=== PATIENT | female | born 1970 | race Caucasian/White ===

== ENCOUNTER 2016-10-09 05:30 | Inpatient (IN) | payer OTHER ==
[2016-10-09] VITALS (21 sets, daily range): BP systolic 103–147; BP diastolic 65–91; PULSE 74–86; RESP 11–28; Ht 166.4 cm; Wt 88.8 kg
[~2016-10-09] VITALS: Ht 166.4 cm; Wt 88.8 kg
[~2016-10-09 05:30] MED LIST: GABA600T PO; HYDR-3720 PO; HYDR-762 PO
[2016-10-09] MEDS ORDERED: CEFAZOLIN 2 GM/50 ML (PMX) 50 ML IVPB ONE (06:50)
[2016-10-09] MEDS ORDERED: NS + KCL 20 MEQ 1,000 ML IV SCH (06:50)
[2016-10-09] MEDS ORDERED: ROCURONIUM 50 MG INJ ONE (07:00)
[2016-10-09] MEDS ORDERED: EPHEDrine SULFATE 50 MG/5 ML SYG ONE (07:00)
[2016-10-09] MEDS ORDERED: LURA80TA PO (07:28)
[2016-10-09] MEDS ORDERED: MIRT-8 PO (07:28)
[2016-10-09] MEDS ORDERED: CITA-104 PO (07:28)
[2016-10-09] MEDS ORDERED: ALPR2TAB PO (07:28)
[2016-10-09] MEDS ORDERED: CEFAZOLIN 1 GM INJ ONE ×2 (07:32→10:14)
[2016-10-09] MEDS ORDERED: LIDOCAINE 0.5%/EPI (MDV) 50 ML INJ ONE (07:32)
[2016-10-09] MEDS ORDERED: HYDROmorphONE 2 MG/ML SYG ONE (07:42)
[2016-10-09] MEDS ORDERED: MIDAZOLAM 1 MG/ML 2 ML INJ ONE (07:42)
[2016-10-09] MEDS ORDERED: THROMBIN 5000 UNIT VIAL ONE (07:46)
--- NOTE | 2016-10-09 08:30 | HP ---
Date/Time of Note Date/Time of Note DATE: 10/09/16 TIME: 08:23 Assessment/Plan VTE Prophylaxis VTE Prophylaxis Intervention: anti-embolic stocking Lines/Catheters IV C[facility]ter Type [facility]from [facility]): Saline Lock Assessment/Plan Chief Complaint/Hosp Course 46 year-old F with lumbar radiculopathy and spondylosis. I discussed the risk, benefits and alternatives of surgery with patient in detail. The patient understands the risk and wishes to proceed with surgery. Patient to go for L4-5, L5-S1 decompression and fusion. Problems: HPI/ROS Admit Date/Time Admit Date/Time Oct 09, 2016 at 05:30 Hx of Present Illness Documented in system , scanned. 46 year-old F with lumbar radiculopathy and lumbago. MRI shows L4-5 spondylolisthesis, L5-S1 DDD and lumbar spondylosis. Patient denies weakness. He reports chronic incontinence. The patient has failed multiple modalities of non-operative therapy. ROS Skin: no complaints Neurologic: no complaints Psychological: anxiety, depression PMH/Family/Social Past Medical History Medical History: other (depression 2) schizophrenia) Past Surgical History Past Surgical Hx: other (ear tubes as child) Family History Significant Family History: no pertinent family hx Social History Alcohol Use: sober Smoking Status: Former smoker Drug Use: none Exam/Review of Systems Vital Signs Vitals Vital Signs Date Time Temp Pulse Resp B/P Pulse Ox O2 Delivery O2 Flow Rate FiO2 10/09/16 06:42 98.0 82 20 103/73 99 Room Air Exam Constitutional: alert, oriented, well developed Psych: nl mood/affect, no complaints Head: normocephalic Eyes: EOMI, nl conjunctiva ENMT: nl external ears & nose Respiratory: clear to auscultation Cardiovascular: nl pulses Gastrointestinal: non-tender, soft Musculoskeletal: nl extremities to inspection, other (normal tone and bulk. No atrophy) Extremities: normal pulses Neurological: TWISTING FRAME FIXER II-XII intact, nl mental status, nl strength Medications Medications Current Medications Potassium Chloride/Sodium Chloride (NS-KCl 20 Meq) 1,000 ml @ 85 mls/hr [id number] IV ; Start 10/09/16 at 06:50; Stop 10/09/16 at 18:35 ALEX JAMES MD Oct 09, 2016 08:30
--- NOTE | 2016-10-09 08:31 | HPN ---
Date/Time of Note Date/Time of Note DATE: 10/09/16 TIME: 08:30 Interval H&P Admission Note Pt. seen H&P reviewed: No system changes ALEX JAMES MD Oct 09, 2016 08:31
--- NOTE | 2016-10-09 08:48 | RADRPT ---
PROCEDURE: CT lumbar spine without contrast. CLINICAL INDICATION: Preop surgery, low back pain TECHNIQUE: CT of the lumbar spine without contrast was performed on a multidetector CT scanner, wi th multiplanar reformats. One or more of the following dose reduction techniques were used: Automat ed exposure control, adjustment in mA and / or kV according to patient size, use of iterative recons tructive technique. CTDIvol = 48 mGy and DLP = 1223 mGy-cm. COMPARISON: None available. FINDINGS: No fracture or dislocation is identified. There is preservation of the lordosis of the lumbar spine . There is 2 mm retrolisthesis of L3 on L4, and 3 mm grade 1 anterolisthesis of L4 on L5. The vert ebral bodies are maintained in height. There is multilevel anterior spondylosis. There is mild dis k space posteriorly at L1-2 through L3-4, and disk space narrowing severe posteriorly with vacuum ch anges and prominent adjacent sclerosis at L5-S1. Noted are end plate irregularities/Schmorl nodes a t the L2, L3 endplates. T12-L1: There is a minimal posterior central annular calcification. There is no central canal steno sis or foraminal narrowing. L1-L2: There is a minimal posterior right central annular calcification. There is mild facet arthro gigi. There is no central canal stenosis or foraminal narrowing. L2-L3: No disk bulge or herniation is seen. There is mild facet arthropathy. There is no central c anal stenosis or foraminal narrowing. L3-L4: There is posterior disk bulging and facet arthropathy with ligamentum flavum hypertrophy. Th ere is moderate appearing central canal stenosis with lateral recess narrowing. There is mild bilat eral foraminal narrowing. L4-L5: There is posterior disk bulging and advanced facet arthropathy with ligamentum flavum hypertr ophy. There is mild mild appearing central canal stenosis with lateral recess narrowing. There is moderate bilateral foraminal narrowing. L5-S1: There is posterior disk bulging with central annular calcification and facet arthropathy with ligamentum flavum hypertrophy. There is mild appearing central canal stenosis. The thecal sac tape rs at this level. There is moderate to severe bilateral foraminal narrowing. IMPRESSION: 1. Moderate appearing central canal stenosis at L3-4, and mild central canal stenosis at L4-5 and L 5 lateral recess narrowing at these levels. 2. Multilevel foraminal narrowing outlined in detail above. 3. Lumbar spondylosis with mild retrolisthesis at L3-4, and grade 1 anterolisthesis at L4-5. RPTAT: VV .Gama Vo MD, Date Time Electronically viewed and signed by .Gama Vo MD, on 10/09/2016 08:48 .O/
[2016-10-09] MEDS ORDERED: PROPOFOL 100 ML ONE ×2 (09:19→10:14)
[2016-10-09] MEDS ORDERED: CIPROFLOXACIN 400MG/D5W 200 ML ONE (09:19)
[2016-10-09 09:49] LABS: ADD UMIC NO; URINE BILIRUBIN (Dip) NEGATIVE (NEGATIVE); URINE BLOOD (Dip) NEGATIVE (NEGATIVE); URINE COLOR LT. YELLOW (YELLOW); URINE GLUCOSE (Dip) NEGATIVE (NEGATIVE); URINE KETONES (Dip) NEGATIVE (NEGATIVE); URINE LEUKOCYTE ESTERASE (Dip) NEGATIVE (NEGATIVE); URINE NITRITE (Dip) NEGATIVE (NEGATIVE); URINE TOTAL PROTEIN (Dip) NEGATIVE (NEGATIVE); URINE UROBILINOGEN (Dip) 0.2 E.U./dL (0.1-1.0)
[2016-10-09] MEDS ORDERED: PROPOFOL 20 ML ONE ×4 (14:17→16:18)
[2016-10-09] MEDS: GELATIN SIZE 100 SPONGE ONE ×2 (14:17)
[2016-10-09] MEDS: THROMBIN 5000 UNIT VIAL ONE ×2 (14:17)
[2016-10-09] MEDS ORDERED: ONDANSETRON 4 MG INJ ONE (14:17)
[2016-10-09] MEDS ORDERED: MEPERIDINE 100 MG INJ ONE (14:27)
[2016-10-09] MEDS ORDERED: FENTAnyl 50 MCG/ML VIAL ONE (14:37)
[2016-10-09] MEDS ORDERED: HYDROmorphONE (0.2 MG/ML) 10ML SYG IV PRN ×2 (15:00)
[2016-10-09] MEDS ORDERED: DIPHENHYDRAMINE 50 MG INJ IV PRN (15:00)
[2016-10-09] MEDS ORDERED: MEPERIDINE 25 MG INJ IV PRN (15:00)
[2016-10-09] MEDS ORDERED: ONDANSETRON 4 MG INJ IV PRN ×2 (15:00→17:00)
[2016-10-09] MEDS ORDERED: METOCLOPRAMIDE 10 MG INJ IV PRN (15:00)
[2016-10-09] MEDS ORDERED: VANCOMYCIN 1 GM INJ ONE (15:08)
[2016-10-09] MEDS ORDERED: NALOXONE (0.4 MG/ML) INJ IV PRN (17:00)
[2016-10-09] MEDS ORDERED: BETHANECHOL 25 MG TAB PO PRN (17:00)
[2016-10-09] MEDS ORDERED: CEPASTAT LOZENGE MT PRN (17:00)
[2016-10-09] MEDS ORDERED: AL HYDROX/MG HYDROX/SIMETH 30 ML CUP PO PRN (17:00)
[2016-10-09] MEDS ORDERED: HYDROCODONE/APAP (5/325) TAB PO PRN (17:00)
[2016-10-09] MEDS ORDERED: NACL 0.9% 3 ML SYG IV SCH (17:00)
[2016-10-09] MEDS ORDERED: ACETAMINOPHEN 325 MG TAB PO PRN (17:00)
[2016-10-09] MEDS ORDERED: ZOLPIDEM 5 MG TAB PO PRN (17:00)
--- NOTE | 2016-10-09 17:18 | RADRPT ---
PROCEDURE: Intraoperative imaging of the lumbar spine with fluoroscopy. CLINICAL INDICATION: Back pain. Intraoperative. TECHNIQUE: 7 images of the lumbar spine were obtained in the operating room with an image intensif ier. No radiologist was in attendance. 66 seconds of fluoroscopy time was used. COMPARISON: CT scan of the lumbar spine done earlier the same day. FINDINGS: For the purposes of this report, the last apparent true disc level is considered to be L5-S1. Based on this, pedicle screws and connecting rods are present at L4, L5, and S1. IMPRESSION: 1. Intraoperative imaging of the lumbar spine. RPTAT: QQ .Joshua Tinajero MD, MD Date Time Electronically viewed and signed by .Joshua Tinajero MD, MD on 10/09/2016 17:18 .R/
--- NOTE | 2016-10-09 17:20 | OPPN ---
Date/Time of Note Date/Time of Note DATE: 10/09/16 TIME: 17:03 Operative/Procedure Note Pre-Operative Diagnosis 1. Chronic low back pain. 2. Lumbar spondylosis 3. Facet arthropathy L5-S1, L4- 5 4. Lumbar spondylolisthesis. 5. Lumbar radiculopathy. Post-Operative Diagnosis 1. Chronic low back pain. 2. Lumbar spondylosis 3. Facet arthropathy L5-S1, L4- 5 4. Lumbar spondylolisthesis. 5. Lumbar radiculopathy. Procedure 1. Lumbar bilateral laminectomy, L5, partial L4, S1. 2. Lumbar posterior- lateral arthrodesis L4-S1. 3. Lumbar instrumentation L4,L5-S1 bilateral pedicle screws 4. Frameless stereotactic navigation. 5.Use of microscope for intraoperative microdissection. Surgeon: ALEX JAMES MD Anesthesiologist: JOSS GÓMEZ MD Findings spondylolisthesis Implants/Grafts Choice pedicle screws Estimated blood loss: 250 - 300 ml's Drains subfascial hemovac drain Specimens: Not Applicable Complications: None Anesthesia type: general ALEX JAMES MD Oct 09, 2016 17:20
[2016-10-09] MEDS: HYDROmorphONE (0.2 MG/ML) 10ML SYG IV PRN ×2 (17:23→17:56)
[2016-10-09] MEDS: morphine 1 MG/ML 30 ML (PCA) IV SCH ×2 (17:52→23:39)
[2016-10-09] MEDS: DIAZEPAM 5 MG TAB PO PRN (20:21)
[2016-10-09] MEDS: CEFAZOLIN 1 GM/50 ML (PMX) 50 ML IVPB SCH (20:29)
[2016-10-09] MEDS ORDERED: VITAMIN A & D 5 GM OINT PACKET TOP ONE (21:30)
--- NOTE | 2016-10-09 23:59 | PN ---
Date/Time of Note Date/Time of Note DATE: 10/09/16 TIME: 23:56 Assessment/Plan VTE Prophylaxis VTE Prophylaxis Intervention: anti-embolic stocking Lines/Catheters IV Catheter Type (from Nrsg): Peripheral IV Urinary Cath still in place: Yes Reason Cath still needed: other (indicate) Assessment/Plan Chief Complaint/Hosp Course CHRONIC BACK PAIN LUMBER RADICULOPATHY S/P LUMBER BILATERAL LAMINECTOMY PLAN PER ORDER PAIN MEDS CK LABS Problems: Subjective 24 Hr Interval Summary ENT: no complaints Respiratory: no complaints Cardiovascular: no complaints Gastrointestinal: no complaints Genitourinary: no complaints Musculoskeletal: bone/joint pain (+) Skin: no complaints Neurologic: no complaints Endocrine: no complaints Lymphatic: no complaints Psychological: no complaints Exam/Review of Systems Vital Signs Vitals Vital Signs Date Time Temp Pulse Resp B/P Pulse Ox O2 Delivery O2 Flow Rate FiO2 10/09/16 21:13 18 10/09/16 21:09 Nasal Cannula 2.0 10/09/16 21:08 98.4 83 115/65 98 Intake and Output 10/08/16 10/08/16 10/09/16 15:00 23:00 07:00 Output Total 300 ml Balance -300 ml Exam Constitutional: alert, oriented, well developed Psych: anxiety, nl mood/affect, no complaints Head: atraumatic, normocephalic Eyes: EOMI, nl conjunctiva, nl lids ENMT: nl external ears & nose, nl lips & teeth, nl nasal mucosa & septum Neck: jvd, non-tender, supple Respiratory: clear to auscultation, normal air movement Cardiovascular: nl pulses, regular rate and rhythm Gastrointestinal: nl liver, spleen, non-tender, soft Musculoskeletal: nl extremities to inspection Extremities: normal pulses Neurological: DISPENSER OPERATOR II-XII intact, nl mental status Skin: nl turgor Results Results 24 hrs Laboratory Tests Test 10/09/16 09:16 Urine Bilirubin NEGATIVE Urine Clarity CLEAR Urine Color LT. YELLOW Urine Glucose NEGATIVE Urine Hemoglobin NEGATIVE Urine Ketones NEGATIVE Urine Leukocyte Esterase NEGATIVE Urine Nitrite NEGATIVE Urine Specific [place] 1.010 Urine Total Protein NEGATIVE Urine Urobilinogen 0.2 E.U./dL Urine pH 7.0 Medications Medications Current Medications Acetaminophen/ Hydrocodone Bitart ([place] (5/325)) 1 tab Q4H PRN PO PAIN LEVEL 1 -5; Start 10/09/16 at 17:00 Acetaminophen/ Hydrocodone Bitart 2 tab 2 tab Q4H PRN PO PAIN LEVEL 6-10; Start 10/09/16 at 17:00 Cefazolin Sodium (Ancef 1 Gm/50 ml (Pmx)) 50 ml @ 100 mls/hr Q6 IVPB Last administered on 10/09/16 20:29; Admin Dose 100 MLS/HR; Start 10/09/16 at 18:00; Stop 10/10/16 at 12:29 Zolpidem Tartrate (Ambien) 5 mg HS PRN PO INSOMNIA; Start 10/09/16 at 17:00 Ondansetron HCl (Zofran Inj) 4 mg Q6H PRN IV NAUSEA AND/OR VOMITING; Start 10/09 at 17:00 Al Hydrox/Mg Hydrox/Simethicone (Mag-Al Plus) 15 ml Q4H PRN PO CONSTIPATION; Start 10/09/16 at 17:00 Docusate Sodium (Colace) 100 mg BID PO ; Start 10/10/16 at 09:00 Acetaminophen (Tylenol Tab) 650 mg Q4H PRN PO TEMP GREATER THAN 101F OR FERRARO; Start 10/09/16 at 17:00 Ferrous Sulfate (Ferrous Sulfate (Ec)) 325 mg TID PO ; Start 10/10/16 at 09:00 Diazepam (Valium) 5 mg Q4H PRN PO MUSCLE SPASMS Last administered on 10/09/16 20:21; Admin Dose 5 MG; Start 10/09/16 at 17:00 Phenol (Cepastat Lozenge) 1 lozenge PRN PRN MT SORE THROAT; Start 10/09/16 at 17 :00 Bethanechol Chloride (Urecholine) 25 mg PRN PRN PO UNABLE TO VOID; Start at 17:00 Morphine Sulfate (morphine) Q4PCA IV Last administered on 10/09/16 23:39; Admin Dose 30 MG; Start 10/09/16 at 17:00 Naloxone HCl (Narcan) 0.2 mg Q2M PRN IV RR 8 BREATHS/MIN OR LESS; Start at 17:00 SUNG DUTTON MD Oct 09, 2016 23:59
[2016-10-10] MEDS: ALPRAZOLAM 0.25 MG TAB PO SCH ×3 (00:07→21:00)
[2016-10-10] MEDS: CEFAZOLIN 1 GM/50 ML (PMX) 50 ML IVPB SCH ×3 (00:07→12:59)
[2016-10-10] MEDS: HYDROCODONE/APAP (5/325) TAB PO PRN (03:41)
[2016-10-10] MEDS: DIAZEPAM 5 MG TAB PO PRN (04:27)
--- NOTE | 2016-10-10 04:32 | OPR ---
DATE OF OPERATION: 10/09/2016 PREOPERATIVE DIAGNOSES: 1. Chronic low back pain. 2. Lumbar spondylosis. 3. Facet arthropathy L5 to S1, L4 to L5. 4. Lumbar spondylolisthesis, L4 to L5. 5. Lumbar radiculopathy. POSTOPERATIVE DIAGNOSES: 1. Chronic low back pain. 2. Lumbar spondylosis. 3. Facet arthropathy L5 to S1, L4 to L5. 4. Lumbar spondylolisthesis, L4 to L5. 5. Lumbar radiculopathy. PROCEDURES: 1. Bilateral lumbar laminectomy, L5, partial L4 bilaterally, partial S1 bilaterally. 2. Lumbar posterolateral arthrodesis, L4 to S1. 3. Lumbar posterior instrumentation with pedicle screws bilaterally L4, L5, S1. 4. Use of frameless stereotactic navigation. 5. Use of intraoperative microscope for microdissection. SURGEON: Alex Bravo MD SURGICAL INSTRUMENT TECHNICIAN: POOL Marc. ANESTHESIOLOGIST: Alissa Moeller MD FINDINGS: Spondylolisthesis. IMPLANTS: Choice pedicle screws. ESTIMATED BLOOD LOSS: 300 mL. DRAIN PLACED: Subfascial Hemovac drain. SPECIMENS COLLECTED: None. COMPLICATIONS: None. ANESTHESIA: General endotracheal. INDICATIONS: The patient is a 46-year-old female with a history of chronic low back pain. The patient had been followed for many years and tried multiple nonoperative therapies for symptomatic improvement; however, the patient's symptoms progressed. She complained of back pain and left lower extremity radiculopathy consistent with a possible S1 and possible L5 radiculopathy. The risks, benefits and alternatives were discussed, and the patient elected for the procedures. PROCEDURES IN DETAIL: The patient was brought to the OR. She was sedated, intubated, anesthesia successfully induced. A Blanc catheter was placed. A UA as drawn as the patient had had a preoperative UA however was asymptomatic and was also given Cipro given these findings and Ancef for surgical prophylaxis. Sequential compression devices were placed. The patient was placed in a prone position on the operative table. All pressure points were checked for appropriate padding. The patient's arms were placed at a slightly less than 90- degree angle, and the axilla was checked for appropriate padding. The patient was monitored electrophysiologically with EMG and SSEP and baselines established. Fluoroscopy was used to localize the initial incision, and the patient was sterilely prepped and draped. After surgical time-out, the procedures commenced. A 10-blade knife was used to make an incision from L3 down to S1 through the skin. The patient had a significant amount of subcutaneous fat with 2 actual distinct layers. These were dissected through with Bovie electrocautery until the dorsal surface of the spinous process and lumbar fascia were identified. Self-retaining retractor was placed. Bovie electrocautery was used to perform a subperiosteal dissection along the spinous processes and laminae of L4, L5 and S1, laterally to the transverse processes. Self-retaining retractors were placed. At this point, Brainlab was registered. The frame was placed on the S1 spinous process and fit securely. Brainlab was registered to 0.4 mm accuracy and this appeared to be confirmed. The pedicle screws were then placed on the right side in all metallic fashion. The Brainlab probe was used to localize the initial aerial applicator pilot hole at a point in the lateral aspect of the facet joint bisecting the transverse processes, and then with a drill in frameless guidance , the drill was used to make a 30 mm hole into the pedicle. This was probed with a pedicle probe, and there was no evidence of violation, and then the Brainlab probe was used to confirm the trajectory and depth. Next, a 4.5 mm tap was used to tap down into the pedicle. This was again probed with the ball- tip pedicle probe and then the Brainlab probe used to confirm the depth and location. Next, a 5.5 screw was advanced into the vertebral body. A 40 mm x 5.5 mm screw was used at L4 and L5 and a 35 x 6.5 at S1. All screws had excellent purchase. The screws were stimulated and L4 and S1 were above 20; however, L5 measured at 15.6. Although this was above the threshold for an actual violation, this screw was actually removed and the hole probed again, and there did not appear to be an obvious breach or violation; hence the screw was replaced though angled slightly more superiorly and laterally. The screw again tested at 16 mA but was felt to be in an adequate position with no evidence of compression of the nerve. Fluoroscopic images were obtained, and the screws appear to be appropriately positioned. Next, the screws on the left side were placed, and these were to be placed in the same fashion; however, Brainlab was re-registered, and after 3 attempts the registration did not appear to be valid, as there appeared to be error in specific areas, and because of these, it was not felt that the guidance was accurate, although it had been listed as low as 0.8 mm. For this reason, a freehand technique was used. A aerial applicator pilot hole was used under fluoroscopic guidance to make the bur hole, and then a Lenke probe was used to cannulate the pedicle. Next, a 4.5 tap was used at L4 and L5 and the hole was probed with a ball-tip probe and showed no evidence of violation, and then a 5.5 x 40 mm screw at L4 and 5.5 x 45 mm screw at L5 were advanced into the vertebral body. These screws had excellent purchase. A 6.5 x 35 screw was used at S1, and this created excellent purchase. These screws on the left were all tested above 20 mA with stimulation. With the screws placed, the microscope was then brought in to perform a laminectomy. A complete laminectomy at L5 was performed with the high-speed drill and Kerrison rongeurs. The inferior aspect of L4 and superior aspect of S1 were removed primarily on the left side where the patient was symptomatic and there appeared to be some disk bulge. The patient's thecal sac appeared to be significantly tethered and constrained by almost a vascular membrane/sheath, very unusual. Dissection was performed and the L5 and S1 nerves were visualized from their takeoff into the foramen. These appear to have been constrained significantly by this vascularized membrane which did not appear infectious but simply perhaps degenerative. This took significant amount of dissection simply to separate this pseudomembrane to the extent where the thecal sac could be mobilized to see the disk spaces. Under the nerve root and at the shoulder and the axilla, there was some small disk bulge, but there did not appear to be a large disk herniation, and for this reason, it was not felt that a diskectomy was necessary to be performed, as the nerve root appeared to be adequately decompressed by the laminectomy and foraminotomy. With the decompression performed, 60 mm rods were then placed for reduction of spondylolisthesis. Rods were placed bilaterally into the screw heads at L5 and S1 and then with a flight controls engineer the rufina was compressed to the L4 screw and caps were placed. There was significant reduction of the spondylolisthesis and there was no change in the EMG. Final tightening of the screw caps was performed with a final tightening wrench and counter-torque wrench. Next, a high-speed drill was used to decorticate the bone from L4 to S1, then demineralized bone matrix as well as local laminal bone and bone connected and bone trap were put together and placed in a posterolateral fusion. Vancomycin powder was then placed over the instrumentation and a drain tunneled through the skin and the subgaleal space. Incision was then closed with 1-0 suture in the fascia, 2-0 interrupted Vicryl sutures in subcutaneous tissue and a running 4-0 Monocryl suture. Dermabond was placed on incision, allowed to dry, and a sterile dressing applied. The patient was taken off the table, extubated, and taken to recovery. Sponge, needle, and cottonoid count were reported correct at the end of the case. Electrophysiologic monitoring remained stable throughout the case. Dictated By: ALEX BRAVO MD, LG/LAKEISHA Conf#: [id number] DID#: [id number] LYNN
[2016-10-10 05:08] LABS: ADD SCAN DIFF NO
[2016-10-10 05:19] LABS: BASOPHILS % 0.3 % (0.0-2.0); EOSINOPHILS # 0.1 10^3/ul (0.0-0.5); EOSINOPHILS % 1.4 % (0.0-7.0); HEMATOCRIT 34.3 % (37.0-47.0); HEMOGLOBIN 10.9 g/dl (12.0-16.0); LYMPHOCYTES # 1.6 10^3/ul (0.8-2.9); LYMPHOCYTES % 15.7 % (15.0-51.0); MEAN CORPUSCULAR HEMOGLOBIN 31.1 pg (29.0-33.0); MEAN CORPUSCULAR HGB CONC 31.8 g/dl (32.0-37.0); MEAN PLATELET VOLUME 10.3 fl (7.4-10.4); MONOCYTE # 0.8 10^3/ul (0.3-0.9); MONOCYTES % 7.8 % (0.0-11.0); NEUTROPHIL # 7.5 10^3/ul (1.6-7.5); NEUTROPHILS % 74.4 % (39.0-77.0); PLATELET COUNT 271 10^3/UL (140-415); RED CELL DISTRIBUTION WIDTH 13.5 % (11.5-14.5); WHITE BLOOD COUNT 10.1 10^3/ul (4.8-10.8)
[2016-10-10 05:49] LABS: POTASSIUM 3.9 mmol/L (3.5-5.1)
[2016-10-10 05:52] LABS: CREATININE 0.63 mg/dl (0.44-1.00)
[2016-10-10 05:53] LABS: CALCIUM 7.7 mg/dl (8.4-10.2)
[2016-10-10] MEDS: morphine 1 MG/ML 30 ML (PCA) IV SCH ×2 (06:26→15:43)
[2016-10-10 08:04] VITALS: BP 108/72; RESP 18
--- NOTE | 2016-10-10 08:55 | PN ---
Date/Time of Note Date/Time of Note DATE: 10/10/16 TIME: 08:38 Assessment/Plan Lines/Catheters IV Catheter Type (from Nrsg): Peripheral IV García in Place (from Nrsg): Yes Assessment/Plan Chief Complaint/Hosp Course 46 year-old female s/p L4-S1 decompression and fusion POD #1 Neurologically stable. PT/OT ambulate with brace. pain control. DVT prophylaxis with SCD, start LMHW. Problems: Subjective 24 Hr Interval Summary Patient very anxious. Wants garcía out. Denies LE pain or weakness but states that she hasn't been up to true evaluate. Mostly c/o incisional pain. Denies fever or chills. Exam/Review of Systems Vital Signs Vitals Vital Signs Date Time Temp Pulse Resp B/P Pulse Ox O2 Delivery O2 Flow Rate FiO2 10/10/16 08:04 98.8 96 18 108/72 96 10/09/16 21:09 Nasal Cannula 2.0 Intake and Output 10/09/16 10/09/16 10/10/16 15:00 23:00 07:00 Intake Total 2900 ml 1050 ml Output Total 1150 ml 2440 ml Balance 1750 ml -1390 ml Exam Constitutional: alert, oriented Psych: anxiety Head: normocephalic ENMT: other (blister on lips) Drains drain intake. Neurological: FREEZING MACHINE OPERATOR II-XII intact, nl speech, nl strength Results Result Diagram: 10/10/1641910/10/16419 ALEX JAMES MD Oct 10, 2016 08:48
[2016-10-10] MEDS ORDERED: ALPRAZOLAM 1 MG TAB PO SCH (09:00)
[2016-10-10] MEDS ORDERED: NON-FORMULARY/PATIENT OWN MED (Lurasidone Hcl (Latuda) 80 MG) PO SCH (09:00)
[2016-10-10] MEDS ORDERED: LURASIDONE HCL 80 MG XX SCH (09:30)
[2016-10-10] MEDS: CITALOPRAM 20 MG TAB PO SCH (09:41)
[2016-10-10] MEDS: KETOROLAC 30 MG INJ IV PRN (09:42)
[2016-10-10] MEDS: FERROUS SULFATE (EC) 325 MG TAB PO SCH ×3 (09:42→20:46)
[2016-10-10] MEDS: DOCUSATE SODIUM 100 MG CAP PO SCH ×2 (09:42→20:45)
[2016-10-10] MEDS: HEPARIN 5,000 UNIT/0.5 ML SYG SC SCH ×2 (09:45→20:52)
[2016-10-10] MEDS: LATUDA PO SCH (12:58)
[2016-10-10] MEDS: MIRTAZAPINE 15 MG TAB PO SCH (12:59)
--- NOTE | 2016-10-10 16:28 | QN ---
Documentation Comment [id number] SUNG DUTTON MD Oct 10, 2016 16:28
--- NOTE | 2016-10-10 18:06 | CONS ---
DATE OF ADMISSION: 10/09/2016 DATE OF CONSULTATION: TYPE OF CONSULTATION: Internal Medicine HISTORY OF PRESENT ILLNESS: A 46-year-old female with lumbar radiculopathy and spondylosis. She wa s seen postop. The patient underwent bilateral lumbar laminectomy L5 partial, L4 bilaterally, parti al S1, bilateral lumbar posterolateral arthrodesis L4 to L5, lumbar posterior instrumentation, use o f intraoperative microscope for dissection. The patient is being seen postprocedure. PAST MEDICAL HISTORY: Positive for depression, anxiety. ALLERGY HISTORY: NEGATIVE. FAMILY HISTORY: Negative. SOCIAL HISTORY: Negative. MEDICATIONS: The patient at home is on: 1. Xanax. 2. Celexa. 3. Latuda. 4. Mirtazapine. REVIEW OF SYSTEMS: HEENT: Unremarkable. RESPIRATORY: Unremarkable. CARDIOVASCULAR: Unremarkable. ABDOMEN: No abdominal pain. EXTREMITIES: No lower extremity pain, but complains of some back pain. PHYSICAL EXAMINATION: GENERAL: The patient is awake, alert. VITAL SIGNS: Pulse of 93, blood pressure 108/72. HEAD: Atraumatic, normocephalic. Pupils equal, reactive to light. NECK: Supple. No JVD. LUNGS: Clear. CARDIOVASCULAR: S1, S2 normal. ABDOMEN: Soft, nontender. Bowel sounds positive. EXTREMITIES: No cyanosis, clubbing, or edema. CENTRAL NERVOUS SYSTEM: The patient is awake, weak, slow, postop and able to move lower extremities . SKIN: The patient has a dressing on the back noted. LABORATORY DATA: Hematocrit 34.3. IMPRESSION: 1. The patient had bilateral lumbar laminectomy, lumbar posterolateral arthrodesis, lumbar posterio r instrumentation. 2. Anemia. 3. History of psychiatric disorder. PLAN: Continue current treatment, incentive spirometry, SCDs to the legs, pain medications. Orders were done. Dictated By: SUNG DUTTON MD BS/NTS Conf#: [id number] DID#: [id number]
--- NOTE | 2016-10-10 19:29 | RADRPT ---
PROCEDURE: XR Lumbar Spine. CLINICAL INDICATION: Back pain. TECHNIQUE: Three views. AP, lateral and cone-down lateral view of the lumbar spine were obtained. COMPARISON: Intraoperative imaging dated 10/09/2016. FINDINGS: There has been posterior fusion with pedicle screws and connecting rods at L4, L5, S1. Alignment is satisfactory. There is no fracture. There is no lytic or blastic lesion. There are degenerative changes with small osteophytes throughout. The paravertebral soft tissues are unremarkable. IMPRESSION: 1. Satisfactory postoperative appearance of the lumbar spine. RPTAT: QQ .Joshua Tinajero MD, MD Date Time Electronically viewed and signed by .Joshua Tinajero MD, MD on 10/10/2016 19:29 .R/
[2016-10-10] MEDS ORDERED: ALPRAZOLAM 1 MG TAB PO PRN (20:30)
[2016-10-10] MEDS ORDERED: LORAZEPAM 2 MG INJ IV PRN (20:30)
[2016-10-10 20:55] VITALS: BP 124/68; PULSE 72; RESP 18
[2016-10-10 21:05] VITALS: BP 113/67; RESP 20
[2016-10-10] MEDS ORDERED: VITAMIN A & D 5 GM OINT PACKET TOP ONE (21:40)
[2016-10-11] MEDS: morphine 1 MG/ML 30 ML (PCA) IV SCH ×2 (00:23→08:30)
[2016-10-11 08:15] VITALS: BP 120/57; RESP 18
[2016-10-11 08:33] VITALS: BP 100/58; RESP 18
[2016-10-11] MEDS: ALPRAZOLAM 0.25 MG TAB PO SCH (09:00)
--- NOTE | 2016-10-11 09:20 | PN ---
Date/Time of Note Date/Time of Note DATE: 10/11/16 TIME: 09:16 Assessment/Plan Lines/Catheters IV Catheter Type (from Nrs): Peripheral IV Blanc in Place (from Nrs): Yes Assessment/Plan Chief Complaint/Hosp Course 46 year-old female s/p L4-S1 decompression and fusion POD #2 Neurologically stable. cont. PT DVT prophylaxis with SCD, start LMHW. 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 If stable medically, home today with [place], [place] and Valium new meds; may resume other prior meds and discussed not using Valium when taking Xanax. Discussed discharge instructions and precautions. Problems: Subjective 24 Hr Interval Summary Patient doing well. Has ambulated multiple times but has not experience radicular leg pain but did report some buttock cramping. Denies fevers, chills. Back pain present controlled. Denies weakness. 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 Drain D/Cd.) Results Result Diagram: 10/10/1641910/10/16 042 Procedures Procedures A/P later lumbar x-rays reviewed, stable instrumentation. ALEX JAMES MD Oct 11, 2016 09:20
[2016-10-11] MEDS: FERROUS SULFATE (EC) 325 MG TAB PO SCH ×2 (09:33→13:21)
[2016-10-11] MEDS: DOCUSATE SODIUM 100 MG CAP PO SCH (09:33)
[2016-10-11] MEDS: CITALOPRAM 20 MG TAB PO SCH (09:33)
[2016-10-11] MEDS: DIAZEPAM 5 MG TAB PO PRN ×2 (09:33→14:56)
[2016-10-11] MEDS: KETOROLAC 30 MG INJ IV PRN (09:33)
[2016-10-11] MEDS: MIRTAZAPINE 15 MG TAB PO SCH (09:33)
[2016-10-11] MEDS: HEPARIN 5,000 UNIT/0.5 ML SYG SC SCH (09:35)
[2016-10-11] MEDS: HYDROCODONE/APAP (5/325) TAB PO PRN ×2 (09:39→14:54)
[2016-10-11 09:40] LABS: ADD SCAN DIFF NO
[2016-10-11 09:44] LABS: BASOPHILS % 0.3 % (0.0-2.0); EOSINOPHILS # 0.1 10^3/ul (0.0-0.5); EOSINOPHILS % 0.7 % (0.0-7.0); HEMATOCRIT 31.1 % (37.0-47.0); HEMOGLOBIN 9.9 g/dl (12.0-16.0); LYMPHOCYTES # 1.2 10^3/ul (0.8-2.9); LYMPHOCYTES % 10.3 % (15.0-51.0); MEAN CORPUSCULAR HEMOGLOBIN 31.1 pg (29.0-33.0); MEAN CORPUSCULAR HGB CONC 31.8 g/dl (32.0-37.0); MEAN CORPUSCULAR VOLUME 97.8 fl (82.0-101.0); MEAN PLATELET VOLUME 9.8 fl (7.4-10.4); MONOCYTE # 1.2 10^3/ul (0.3-0.9); MONOCYTES % 10.4 % (0.0-11.0); NEUTROPHIL # 9.1 10^3/ul (1.6-7.5); NEUTROPHILS % 77.9 % (39.0-77.0); PLATELET COUNT 250 10^3/UL (140-415); RED BLOOD COUNT 3.18 10^6/ul (4.20-5.40); RED CELL DISTRIBUTION WIDTH 13.2 % (11.5-14.5); WHITE BLOOD COUNT 11.7 10^3/ul (4.8-10.8)
[2016-10-11 09:56] LABS: ALBUMIN 2.7 g/dl (3.3-4.9)
[2016-10-11 09:57] LABS: POTASSIUM 3.8 mmol/L (3.5-5.1)
[2016-10-11 09:59] LABS: ALBUMIN/GLOBULIN RATIO 1.08; BILIRUBIN,INDIRECT 0.3 mg/dl (0-1.1); BILIRUBIN,TOTAL 0.3 mg/dl (0.2-1.3); CREATININE 0.59 mg/dl (0.44-1.00); TOTAL PROTEIN 5.2 g/dl (6.1-8.1)
[2016-10-11 10:00] LABS: CALCIUM 7.9 mg/dl (8.4-10.2)
[2016-10-11] MEDS: LATUDA PO SCH (10:04)
[2016-10-11] MEDS ORDERED: POLY17PO6 PO (15:35)
--- NOTE | 2016-10-11 15:35 | PDOCDIS ---
Discharge Instructions CONDITION Patient Condition: Stable HOME CARE INSTRUCTIONS: Diet Instructions: Regular ACTIVITY: Activity Restrictions: Slowly Increase Activity Rest between Activity Avoid heavy lifting Do not Drive Do not operate Machinery Do not operate Power Tool Avoid Heavy Housework Bathing Restrictions: Shower FOLLOW UP/APPOINTMENTS Appointments see own pcp [address] garcia 1 wk SUNG DUTTON MD Oct 11, 2016 15:35
[2016-10-11] MEDS ORDERED: VITAMIN A & D 5 GM OINT PACKET TOP ONE (15:43)
--- NOTE | 2016-10-11 16:52 | QN ---
Documentation Comment [id number] SUNG DUTTON MD Oct 11, 2016 16:52
--- NOTE | 2016-10-11 18:32 | DS ---
DATE OF ADMISSION: 10/09/2016 DATE OF DISCHARGE: 10/11/2016 HOSPITAL COURSE: The patient is a 46-year-old female who presented with history of back pain. The patient had lumbar radiculopathy and spondylosis. The patient underwent bilateral lumbar laminectom y L5, partial L4 bilaterally, partial S1 bilaterally, lumbar posterolateral arthrodesis, lumber post erior instrumentation. Postop, the patient required pain medication and the medicine for bowel care . The patient was cleared by Dr. James to be discharged home. DISCHARGE DIAGNOSES: Include: 1. The patient has a lumbar radiculopathy status post bilateral lumbar laminectomy L5, partial L4 b ilaterally, partial S1 bilaterally, lumbar posterolateral arthrodesis, lumber posterior instrumentat ion. 2. Anxiety. 3. Depression. 4. Anemia, stable. 5. Hypoalbuminemia. DISCHARGE MEDICATIONS: 1. To continue on MiraLax. 2. Celexa. 3. Mirtazapine. 4. Latuda. The patient was given prescription for: 1. Stool softener. 2. Pain medication. 3. Antianxiety medication by Dr. James. FOLLOWUP: With own PCP and Dr. James as an outpatient. DISPOSITION: The patient is stable at the time of discharge. Dictated By: SUNG DUTTON MD BS/NTS Conf#: [id number] DID#: [id number] CC: ALEX JAMES MD;*EndCC*
== END 2016-10-11 15:50 | disposition home or self-care (01) | DRG 460 ==
LOC: REC 05:30 → MS1 18:30
PROVIDERS: ADMIT Neurological Surgery; ATTEND Neurological Surgery
PROC: 0SG3071 Fusion of Lumbosacral Joint with Autologous Tissue Substitute, Posterior Approach, Posterior Column, Open Approach (ICD-10-PCS; 2016-10-09)
PROC: 0SG0071 Fusion of Lumbar Vertebral Joint with Autologous Tissue Substitute, Posterior Approach, Posterior Column, Open Approach (ICD-10-PCS; principal; 2016-10-09 08:00)
DX: M43.16 Spondylolisthesis, lumbar region (principal); E88.09 Other disorders of plasma-protein metabolism, not elsewhere classified; M47.26 Other spondylosis with radiculopathy, lumbar region; D64.9 Anemia, unspecified; F41.9 Anxiety disorder, unspecified; F32.9 Major depressive disorder, single episode, unspecified; F20.9 Schizophrenia, unspecified; E66.9 Obesity, unspecified; M12.88 Other specific arthropathies, not elsewhere classified, other specified site; Z68.32 Body mass index [BMI] 32.0-32.9, adult
CPT/HCPCS: 72100; 72110; 72131; 80048; 80053; 81003; 84703; 85025; 86850; 86900; 86901; 97116; 97162; 97530; J0690; J0744; J1170; J1200; J1644; J1885; J2060; J2175; J2250; J2270; J2405; J3010; J3370; J3480